=== PATIENT | female | born 1995 | race African-American/Black ===

== ENCOUNTER 2023-01-24 10:52 | Emergency (ER) | payer MEDICAID, OTHER ==
[~2023-01-24] VITALS: Ht 177.8 cm; Wt 111.3 kg
[2023-01-24 11:21] VITALS: BP 138/98
[2023-01-24] MEDS ORDERED: AMOX875T3 PO (11:27)
[2023-01-24] MEDS ORDERED: IBUP600T27 PO (11:27)
== END 2023-01-24 11:44 | disposition home or self-care (01) ==
LOC: ER 10:52
DX: H66.92 Otitis media, unspecified, left ear (principal); Z88.1 Allergy status to other antibiotic agents; Z88.6 Allergy status to analgesic agent

== ENCOUNTER 2023-06-14 10:29 | Emergency (ER) | payer OTHER ==
[~2023-06-14] VITALS: Ht 177.8 cm; Wt 111.7 kg
[~2023-06-14 10:29] MED LIST: AMOX875T3 PO; IBUP-1454 PO
[2023-06-14 11:15] VITALS: BP 141/93; PULSE 90; RESP 18; TEMP 98.1; O2SAT 100
[2023-06-14] MEDS ORDERED: AUG875T PO (11:15)
[2023-06-14] MEDS ORDERED: IBUP-1456 PO (11:15)
== END 2023-06-14 11:17 | disposition home or self-care (01) ==
LOC: ER 10:29
DX: H66.92 Otitis media, unspecified, left ear (principal)

== ENCOUNTER 2023-06-24 20:59 | Emergency (ER) | payer OTHER ==
[~2023-06-24] VITALS: Ht 167.6 cm; Wt 111.8 kg
[~2023-06-24 20:59] MED LIST changes: +AUG875T PO; +IBUP-1456 PO
[2023-06-24 22:00] LABS: Basophils # (auto) 0 10 ^3/uL (0-0.2); Basophils % (auto) 0.4 % (0.0-2.0); Hemoglobin 12.2 g/dL (12.2-16.2); Lymphocytes # (auto) 1.6 10 ^3/uL (0.4-5.4); Nucleated Red Blood Cells % 0.1 %
[2023-06-24 22:02] LABS: Eosinophils # (auto) 0 10 ^3/uL (0-0.8); Eosinophils % (auto) 0.7 % (0.0-7.0); Hematocrit 38.8 % (36.0-46.0); Mean Corpuscular Hemoglobin 22.3 pg (28.0-32.0); Mean Corpuscular Hgb Conc. 31.4 g/dL (32.0-36.0); Mean Corpuscular Volume 70.9 fL (80.0-100.0); Monocytes # (auto) 0.3 10 ^3/uL (0-1.3); Monocytes % (auto) 5.4 % (0.0-12.0); Neutrophils # (auto) 3.7 10 ^3/uL (1.6-8.6); Neutrophils % (auto) 65.5 % (37.0-80.0); Red Blood Cells 5.47 10^6/uL (4.0-5.20); Red Cell Distribution Width 15.8 % (11.8-14.3); White Blood Cell 5.7 10^3/uL (4.4-10.8)
[2023-06-24 22:15] LABS: Albumin 4.1 g/dL (3.4-5.0); Calcium 9.7 mg/dL (8.5-10.1); Magnesium 1.9 mg/dL (1.6-2.6); Potassium 3.4 mmol/L (3.5-5.1)
[2023-06-24] MEDS ORDERED: LORATADINE 10 MG TAB PO ONE (22:15)
[2023-06-24] MEDS ORDERED: DexAMETHasone SOD PHOS 10MG/1ML VIAL INJ IM ONE (22:15)
[2023-06-24 22:19] LABS: BUN/Creatinine Ratio 7.7 (10.0-20.0); Bilirubin, Total 0.4 mg/dL (0.2-1.0); Total Protein 8.1 g/dL (6.4-8.2)
[2023-06-24 23:05] LABS: Lactic Acid w/Reflex 7.2 mmol/L (0.4-2.0)
[2023-06-24 23:13] VITALS: BP 146/85; PULSE 71; RESP 21; TEMP 98.5; O2SAT 100
[2023-06-24] MEDS ORDERED: ONDANSETRON HCL 4 MG/2 ML VIAL IM ONE (23:15)
[2023-06-24] MEDS ORDERED: SODIUM CHLORIDE 0.9% 2,000 ML IV ONE (23:30)
[2023-06-25 00:24] LABS: Urine Bacteria NONE SEEN /hpf (None Seen); Urine Blood Negative /uL (Negative); Urine Clarity Clear (Clear); Urine Color Yellow (Yellow); Urine Mucus FEW (None Seen); Urine Protein, UAD 1+ (Negative); Urine Specific Gravity 1.028 (1.001-1.035); Urine Urobilinogen Normal (Negative); Urine WBC 1 /hpf (0 - 5)
[2023-06-25] MEDS ORDERED: SODIUM CHLORIDE 0.9% 1,000 ML IV ONE (00:45)
== END 2023-06-25 05:08 | disposition left against medical advice (07) ==
LOC: ER 21:01
DX: R53.1 Weakness (principal); R11.10 Vomiting, unspecified; F41.9 Anxiety disorder, unspecified; R20.0 Anesthesia of skin
CPT/HCPCS: 36415; 70450; 71045; 80053; 81001; 83605; 83735; 84484; 85025; 87040; 93005; 96360; 96361; 96372; 99285; J1100; J2405; J7030

== ENCOUNTER 2023-10-27 15:30 | Emergency (ER) | payer MEDICAID, OTHER ==
[~2023-10-27] VITALS: Ht 177.8 cm; Wt 113.6 kg
[2023-10-27 16:11] LABS: Basophils # (auto) 0 10 ^3/uL (0-0.2); Basophils % (auto) 0.2 % (0.0-2.0); Eosinophils # (auto) 0 10 ^3/uL (0-0.8); Hematocrit 39.3 % (36.0-46.0); Hemoglobin 12.6 g/dL (12.2-16.2); Mean Corpuscular Hemoglobin 22.4 pg (28.0-32.0); Mean Corpuscular Hgb Conc. 31.9 g/dL (32.0-36.0); Mean Corpuscular Volume 70.2 fL (80.0-100.0); Monocytes # (auto) 0.2 10 ^3/uL (0-1.3); Neutrophils # (auto) 5.9 10 ^3/uL (1.6-8.6); Neutrophils % (auto) 72.8 % (37.0-80.0); Red Cell Distribution Width 15.9 % (11.8-14.3); White Blood Cell 8.1 10^3/uL (4.4-10.8)
[2023-10-27] MEDS ORDERED: ONDANSETRON HCL 4 MG/2 ML VIAL IM ONE ×2 (16:15→22:00)
[2023-10-27] MEDS ORDERED: DICYCLOMINE HCL (10MG/ML) 2 ML AMPULE IM ONE (16:15)
[2023-10-27 16:29] LABS: Alanine Aminotransferase 29 U/L (7-40); Albumin 5.1 g/dL (3.2-4.8); Alkaline Phosphatase 53 U/L (46-116); Anion Gap 11 (5-15); Aspartate Aminotransferase 14 U/L (13-40); BUN/Creatinine Ratio 10.5 (10.0-20.0); Bilirubin, Total 0.6 mg/dL (0.2-1.0); Blood Urea Nitrogen 12 mg/dL (9-23); Calcium 10.3 mg/dL (8.5-10.1); Carbon Dioxide 23 mmol/L (20-30); Chloride 103 mmol/L (98-107); Glucose 141 mg/dL (74-106); Potassium 3.3 mmol/L (3.5-5.1); Sodium 137 mmol/L (136-145); Total Protein 8.4 g/dL (5.7-8.2)
[2023-10-27 16:36] LABS: Rapid Strep A Screen-Throat Negative
[2023-10-27] MEDS ORDERED: ONDANSETRON HCL 4 MG/2 ML VIAL ONE (16:59)
[2023-10-27] MEDS ORDERED: DICYCLOMINE HCL 10 MG CAP ONE (16:59)
[2023-10-27] MEDS ORDERED: METOCLOPRAMIDE HCL 5MG/ml INJ 2ml VIAL IM ONE (19:45)
[2023-10-27] MEDS ORDERED: METOCLOPRAMIDE HCL 5MG/ml INJ 2ml VIAL ONE (20:40)
[2023-10-27] MEDS ORDERED: PROCHLORPERAZINE EDISYLATE 5 MG/ML 2ML VIAL IM ONE (22:00)
[2023-10-27 22:23] LABS: Urine Bacteria NONE SEEN /hpf (None Seen); Urine Blood Negative /uL (Negative); Urine Clarity Clear (Clear); Urine Color Yellow (Yellow); Urine Hyaline Cast FEW /lpf (0 - 2); Urine Mucus FEW (None Seen); Urine Protein, UAD 2+ (Negative); Urine Specific Gravity 1.039 (1.001-1.035); Urine WBC 2 /hpf (0 - 5)
[2023-10-27] MEDS ORDERED: PROCHLORPERAZINE EDISYLATE 5 MG/ML 2ML VIAL ONE (22:46)
[2023-10-27 22:50] VITALS: BP 128/80; PULSE 86; RESP 18; TEMP 98.7; O2SAT 100
[2023-10-27] MEDS ORDERED: ALPR0.5T PO ×2 (23:23)
[2023-10-28] MEDS ORDERED: ZOFR4T PO (02:55)
[2023-10-28] MEDS ORDERED: METO-281 PO (02:55)
== END 2023-10-28 02:56 | disposition left against medical advice (07) ==
LOC: ER 15:30
DX: O99.611 Diseases of the digestive system complicating pregnancy, first trimester (principal); R10.2 Pelvic and perineal pain; K52.9 Noninfective gastroenteritis and colitis, unspecified; Z3A.13 13 weeks gestation of pregnancy; Z79.1 Long term (current) use of non-steroidal anti-inflammatories (NSAID); Z79.2 Long term (current) use of antibiotics
CPT/HCPCS: 36415; 80053; 81001; 81025; 84702; 85025; 87070; 87880; 96372; 99284; J0780; J2405; J2765

== ENCOUNTER 2024-12-09 13:55 | Emergency (ER) | payer MEDICAID ==
[~2024-12-09] VITALS: Ht 177.8 cm; Wt 105.3 kg
[~2024-12-09 13:55] MED LIST changes: +METO-281 PO; +ZOFR4T PO
[2024-12-09 15:21] LABS: Basophils # (auto) 0.1 10 ^3/uL (0-0.2); Basophils % (auto) 0.5 % (0.0-2.0); Eosinophils # (auto) 0 10 ^3/uL (0-0.8); Hematocrit 40.7 % (36.0-46.0); Hemoglobin 13.4 g/dL (12.2-16.2); Lymphocytes # (auto) 2.3 10 ^3/uL (0.4-5.4); Lymphocytes % (auto) 23.3 % (10.0-50.0); Mean Corpuscular Hemoglobin 23.1 pg (28.0-32.0); Mean Corpuscular Hgb Conc. 32.9 g/dL (32.0-36.0); Mean Corpuscular Volume 70.1 fL (80.0-100.0); Monocytes # (auto) 0.3 10 ^3/uL (0-1.3); Monocytes % (auto) 3.5 % (0.0-12.0); Neutrophils # (auto) 7.1 10 ^3/uL (1.6-8.6); Neutrophils % (auto) 72.7 % (37.0-80.0); Nucleated Red Blood Cells % 0.1 %; Platelet Count (auto) 342 10^3/uL (140-450); Red Cell Distribution Width 14.8 % (11.8-14.3); White Blood Cell 9.7 10^3/uL (4.4-10.8)
[2024-12-09 15:30] LABS: Chloride 104 mmol/L (98-107); Sodium 139 mmol/L (136-145)
[2024-12-09 15:31] LABS: Anion Gap 13 (5-15); Carbon Dioxide 22 mmol/L (20-31)
[2024-12-09 15:37] LABS: BUN/Creatinine Ratio 13.6 (10.0-20.0); Blood Urea Nitrogen 18 mg/dL (9-23)
[2024-12-09 15:38] LABS: Calcium 11.1 mg/dL (8.7-10.4); Glucose 119 mg/dL (74-106); Potassium 3.4 mmol/L (3.5-5.1)
--- NOTE | 2024-12-09 15:48 | ED.PDOC ---
GI ASSESSMENT HPI Comments 29 y/o F, presents to the ED for CC of nausea/vomiting. Patient states, that she has been experiencing persistent nausea and vomiting x4days. Patient comments on, the possibility of being however she is unsure; LMP was on November 02, 2024. Patient denies tobacco usage or ETOH consumption, patient endorses on quitting marijuana usage as of 1 week ago. Patient denies fever, abdominal pain, diarrhea, chills, or body aches. No other symptoms or modifying factors at this time. Chief Complaint: Nausea/Vomiting Time Seen by MD: 15:30 Primary Care Provider: UNKNOWN Reviewed Notes: Nurses Notes, Medications, Allergies Allergies: Coded Allergies: NO KNOWN ALLERGIES (Unverified , 01/24/23) Home Meds Active Scripts Metoclopramide Hcl (Reglan) 10 Mg Tab, 10 MG PO Q6HP PRN, #30 TAB Prov:OSCAR FAROOQ PAC 10/28/23 Ondansetron Odt 4MG Tab (ZOFRAN PO) 4 Mg Tb, 4 MG PO Q6HP PRN, #20 TAB ODT TAB-DISSOLVE IN MOUTH, THEN SWALLOW Prov:OSCAR FAROOQ PAC 10/28/23 Ibuprofen (Ibuprofen) 800 Mg Tab, 1 TAB PO TID, #24 TAB Prov:MORRIS HERNANDEZ 06/14/23 Amoxicillin & Pot Clavulanate (AUGMENTIN TABLET) 875 Mg Tb, 875 MG PO BID for 10 Days, #20 TAB Prov:MORRIS HERNANDEZ 06/14/23 Ibuprofen (Ibuprofen) 600 Mg Tab, 1 TAB PO TID, #30 TAB Prov:MORRIS HERNANDEZ 01/24/23 Amoxicillin Trihydrate (Amoxicillin) 875 Mg Tab, 1 TAB PO BID, #20 TAB Prov:MORRIS HERNANDEZ 01/24/23 Information Source: Patient Mode of Arrival: Ambulatory Timing: Days Duration: Since onset Prehospital treatment: None Quality: None Vomitus: Watery Stool: Watery Severity: Mild Recent: None Recent Hx of: None Pain Location: None Modifying Factors: Nothing Associated sign and symptoms: Nausea, Vomiting, None Past Medical History PAST MEDICAL HISTORY: Denies Surgical History: Denies all surgeries BUGGY RUNNER History: Denies all BUGGY RUNNER Hx Family History Family History: Reviewed,noncontributory to illness Social History Smoker: Non-Smoker Alcohol: Denies ETOH Use Drugs: Marijuana (QUIT 1 WEEK AGO) Lives In: Home Constitutional: denies: chills, diaphoresis, fatigue, fever, malaise, sweats, weakness, others EENTM: denies: blurred vision, double vision, ear bleeding, ear discharge, ear drainage, ear pain, ear ringing, eye pain, eye redness, hearing loss, mouth pain, mouth swelling, nasal discharge, nose bleeding, nose congestion, nose pain, photophobia, tearing, throat pain, throat swelling, voice changes, others Respiratory: denies: cough, hemoptysis, orthopnea, SOB at rest, shortness of breath, SOB with excertion, stridor, wheezing, others Cardiovascular: denies: chest pain, dizzy spells, diaphoresis, Dyspnea on exertion, edema, irregular heart beat, left arm pain, lightheadedness, palpitations, PND, syncope, others Gastrointestinal: reports: nausea, vomiting; denies: abdomen distended, abdominal pain, blood streaked bowels, constipated, diarrhea, dysphagia, difficulty swallowing, hematemesis, melena, poor appetite, poor fluid intake, rectal bleeding, rectal pain, others Genitourinary: denies: abnormal vagina bleeding, burning, dyspareunia, dysuria, flank pain, frequency, hematuria, incontinence, pain, , vagina discharg e, urgency, others Neurological: denies: dizziness, fainting, headache, left sided numbness, left sided weakness, numbness, paresthesia, pre-existing deficit, right sided numbness, right sided weakness, seizure, speech problems, tingling, tremors, weakness, others Musculoskeletal: denies: back pain, gout, joint pain, joint swelling, muscle pain, muscle stiffness, neck pain, others Integumetry: denies: bruises, change in color, change in hair/nails, dryness, laceration, lesions, lumps, rash, wounds, others Allergic/Immunocompromised: denies: Difficulty Healing, Frequent Infections, Hives, Itching, others Hematologic/Lymphatic: denies: anemia, blood clots, easy bleeding, easy bruising, swollen glands, others Endocrine: denies: excessive hunger, excessive sweating, excessive thirst, excessive urination, flushing, intolerance to cold, intolerance to heat, unexplained weight gain, unexplained weight loss, others Psychiatric: denies: anxiety, bipolar disorder, depression, hopeless, panic d isorder, schizophrenia, sleepless, suicidal, others All Other Systems: Reviewed and Negative Physical Exam General Appearance: Moderate Distress HEENT: Normal ENT Inspection, Pharynx Normal, TMs Normal Neck: Full Range of Motion, Non-Tender, Normal, Normal Inspection Respiratory: Chest Non-Tender, Lungs Clear, No Accessory Muscle Use, No Respiratory Distress, Normal Breath Sounds Cardiovascular: No Edema, No JVD, No Murmur, No Gallop, Normal Peripheral Pulses, Regular Rate/Rhythm Breast Exam: Deferred Gastrointestinal: No Organomegaly, Non Tender, No Pulsatile Mass, Normal Bowel Sounds, Soft Genitalia: Deferred Pelvic: Deferred Rectal: Deferred Extremities: No calf tenderness, Normal capillary refill, Normal inspection, Normal range of motion, Non-tender, No pedal edema Musculoskeletal : Apperance: Normal Neurologic: Alert, account clerk II-XII nml as Tested, No Motor Deficits, Normal Affect, Normal Mood, No Sensory Deficits Cerebellar Function: Normal Reflexes: Normal Skin: Dry, Normal Color, Warm Peripheral Pulses: 3+ Radial (R), 3+ Radial (L) Lymphatic: No Adenopathy Was a procedure done? Was a procedure done?: No GI differential Dx Differential Diagnosis: Constipation, Diverticular disease, Esophagitis, Gastritis/PUD, Gastroenteritis, Drug toxicity, Electrolyte Imbalance, Food Poisoning, , Bacterial, Viral X-Ray, Labs, Meds, VS Vital Signs Date Time Temp Pulse Resp B/P (MAP) Pulse Ox O2 Delivery O2 Flow Rate FiO2 12/09/24 14:30 97.8 117 20 114/96 (102) 100 12/09/24 14:28 91 Lab Test 12/09/24 16:10 12/09/24 15:06 Range/Units Urine Color Yellow Yellow Urine Clarity Turbid H Clear Urine pH 6.5 5.0-9.0 Urine Specific [place] 1.039 H 1.001-1.035 Urine Protein 3+ H Negative Urine Ketones 4+ H Negative Urine Blood Negative Negative /uL Urine Nitrite Negative Negative Urine Bilirubin 1+ H Negative Urine Urobilinogen 4 H Negative mg/dL Urine Leukocyte Esterase 1+ Negative /uL Urine RBC 2 0 - 4 /hpf Urine Microscopic WBC 6 H 0-5 /HPF Urine Squamous Epithelial Cells Many <5 /hpf Urine Bacteria Few H None Seen /hpf Urine Hyaline Casts Few 0 - 2 /lpf Urine Mucus Moderate None Seen Urine Glucose Trace Normal mg/dL Urine Test Positive Negative Urine Opiates Screen Pending Urine Fentanyl Screen Pending Urine Barbiturates Screen Pending Urine Phencyclidine Screen Pending Urine Amphetamines Screen Pending Urine Benzodiazepines Screen Pending Urine Cocaine Screen Pending Urine Cannabinoids Screen Pending White Blood Count 9.7 4.4-10.8 10^3/uL Red Blood Count 5.80 H 4.0-5.20 10^6/uL Hemoglobin 13.4 12.2-16.2 g/dL Hematocrit 40.7 36.0-46.0 % Mean Corpuscular Volume 70.1 L 80.0-100.0 fL Mean Corpuscular Hemoglobin 23.1 L 28.0-32.0 pg Mean Corpuscular Hemoglobin Concent 32.9 32.0-36.0 g/dL Red Cell Distribution Width 14.8 H 11.8-14.3 % Platelet Count 342 140-450 10^3/uL Mean Platelet Volume 6.9 6.9-10.8 fL Neutrophils (%) (Auto) 72.7 37.0-80.0 % Lymphocytes (%) (Auto) 23.3 10.0-50.0 % Monocytes (%) (Auto) 3.5 0.0-12.0 % Eosinophils (%) (Auto) 0.0 0.0-7.0 % Basophils (%) (Auto) 0.5 0.0-2.0 % Neutrophils # (Auto) 7.1 1.6-8.6 10 ^3/uL Lymphocytes # (Auto) 2.3 0.4-5.4 10 ^3/uL Monocytes # (Auto) 0.3 0-1.3 10 ^3/uL Eosinophils # (Auto) 0 0-0.8 10 ^3/uL Basophils # (Auto) 0.1 0-0.2 10 ^3/uL Nucleated Red Blood Cells 0.1 % Sodium Level 139 136-145 mmol/L Potassium Level 3.4 L 3.5-5.1 mmol/L Chloride Level 104 98-107 mmol/L Carbon Dioxide Level 22 20-31 mmol/L Anion Gap 13 5-15 Blood Urea Nitrogen 18 9-23 mg/dL Creatinine 1.32 H 0.550-1.02 mg/dL Glomerular Filtration Rate Calc 56 >90 mL/min BUN/Creatinine Ratio 13.6 10.0-20.0 Serum Glucose 119 H 74-106 mg/dL Calcium Level 11.1 H 8.7-10.4 mg/dL Current Medications Medications (Trade) Dose Ordered Sig/Randy Route Start Time Stop Time Status Last Admin Potassium Bicarbonate (Klor-Con/Ef) 25 meq ONCE ONCE PO 12/09/24 16:45 12/09/24 16:46 DC 12/09/24 16:58 Patient alert. Complaining of nausea vomiting. Vitals stable. Answering questions. Smokes marijuana. Potassium slightly low. Was given potassium. Denies bleeding. Denies abdominal cramping. Possibly marijuana induced. She has been many times. She has been smoking marijuana till recently. Urinalysis shows . Fetus at risk. Explained to the patient. Was told to follow up with her OBGYN. Was told to follow up with her primary care physician. Was told to come back if there is any problem. Time of 1ST Reevaluation: 14:00 Reevaluation 1ST: Unchanged Patient Education/Counseling: Diagnosis, Treatment Family Education/Counseling: No Family Present Departure 1 Departure Time of Disposition: 15:53 Impression: Primary Impression: Qualified Codes: Z34.90 - Encounter for supervision of normal , unspecified, unspecified trimester Disposition: 01 HOME / SELF CARE / HOMELESS Condition: Good Discharged With: Self Critical Care Note Critical Care Time?: No Stability Stability form required: No Heart Score Heart Score: Heart Score Response (Comments) Value History N/A 0 EKG N/A 0 Age N/A 0 Risk Factors N/A 0 Troponin N/A 0 Total 0 I personally scribed for KYMBERLY CARPENTER MD ([email or web address]) on 12/09/24 at 15:48. Electronically submitted by Krystal Steven ([email or web address]). I personally scribed for KYMBERLY CARPENTER MD ([email or web address]) on 12/09/24 at 15:49. Electronically submitted by Krystal Steven ([email or web address]). KYMBERLY CARPENTER MD Dec 09, 2024 15:48
[2024-12-09] MEDS: POTASSIUM EFFERVESENT TAB 25 MEQ PO ONE (16:58)
[2024-12-09 17:03] LABS: Urine Bacteria FEW /hpf (None Seen); Urine Blood Negative /uL (Negative); Urine Clarity Turbid (Clear); Urine Color Yellow (Yellow); Urine Hyaline Cast FEW /lpf (0 - 2); Urine Mucus MODERATE (None Seen); Urine Protein, UAD 3+ (Negative); Urine Specific Gravity 1.039 (1.001-1.035); Urine Squamous Epithelial Cell MANY /hpf (<5); Urine Urobilinogen 4 mg/dL (Negative); Urine WBC 6 /HPF (0-5); Urine pH 6.5 (5.0-9.0)
[2024-12-09 17:10] LABS: Amphetamine Screen, Urine Neg (NEGATIVE); Barbiturate Scree,Urine Neg (NEGATIVE); Benzodiazephine Screen, Urine Neg (NEGATIVE); Cannabinoid Screen, Urine Pos (NEGATIVE); Cocaine Screen, Urine Neg (NEGATIVE); Opiate Scree,Urine Neg (NEGATIVE); Phencyclidine Screen, Urine Neg (NEGATIVE)
[2024-12-09] MEDS: SODIUM CHLORIDE 0.9% 1,000 ML IV ONE (17:56)
[2024-12-09] MEDS ORDERED: CEPH250C PO (18:05)
--- NOTE | 2024-12-09 18:26 | DVH ---
EXAM: US OB ULTRASOUND COMP LESS 14WKS CLINICAL HISTORY: cramping COMPARISON: None TECHNIQUE: Grayscale, color-flow Doppler, and spectral Doppler ultrasound of the pelvis is performed by transabdominal and transvaginal technique. Findings: Single intrauterine with gestational sac, yolk sac and embryo visualized. No heart t ones appreciated. Estimated gestational age 5 weeks 4 days based on parameters including crown- rump length of 0.3 cm. Uterus measures 7.8 x 5.3 x 4.1 cm in size. Cervical os appears closed. Small subchorionic hemorrhage. Right ovary measures 1.9 x 1.8 x 1.4 cm. Left ovary not visualized. Normal ovarian color Doppler flow bilaterally. No free fluid within the cul-de-sac. Impression: 1. Single intrauterine without heart tones. May reflect a failed . Recommen d short interval follow up ultrasound and serial quantitative beta HCG. 2. Estimated gestational age 5 weeks 4 days with estimated date of confinement 08/07/2025. 3. Small subchorionic hemorrhage. Cervical os appears closed. 4. Right ovary is grossly unremarkable.
--- NOTE | 2024-12-09 20:14 | ED.PDOC ---
Departure 1 Departure Time of Disposition: 20:08 (Patient with a urinary tract infection and without heart tone today. Counseled patient's stop using marijuana follow up with her regular doctor.) Impression: Primary Impression: Qualified Codes: Z34.90 - Encounter for supervision of normal , unspecified, unspecified trimester Additional Impression: Urinary tract infection Qualified Codes: N30.01 - Acute cystitis with hematuria Disposition: HOME / SELF CARE / HOMELESS Condition: Stable Additional Instructions: You have a threatened miscarriage. Your ultrasound showed a at 5 weeks and 4 days but they were not able to determine a hear beat. You should follow up with OBGYN within three days to recheck your blood work and ultrasound. You also have a urinary tract infection. You were prescribed antibiotics. Please take as directed. Do not use drugs of any kind while . If your symptoms worsen or you have any other concerns then please return to the ER. e-Prescriptions Cephalexin (KEFLEX CAPSULE) 250 Mg Cp 250 MG PO QID for 7 Days, #28 BOTTLE Prov: KYMBERLY CARPENTER MD 12/09/24 Discharged With: JEROME Junior MD Dec 09, 2024 20:14
[2024-12-09 20:51] VITALS: BP 134/77; PULSE 98; RESP 20; TEMP 98.6; O2SAT 100
--- NOTE | 2024-12-09 22:21 | ECG ---
[facility] Test Date: 2024-12-09 Test Time: 14:28:29 Pat Name: JOS ZAMORANO Department: ED Room: [address] [place] [address] Gender: F Stranner: BYRON : 1995 Requested By: KYMBERLY CARPENTER Order Number: [id number] Reading MD: Saurabh Borges Measurements Intervals [place] Rate: 91 P: 69 DC: 151 QRS: 63 QRSD: 82 T: 5 QT: 350 QTc: 431 Interpretive Statements Sinus rhythm Minimal ST depression, inferior leads Electronically Signed On 12-10-2024 8:55:30 PST by Saurabh Borges Please click the below link to view image of tracing.
== END 2024-12-09 21:04 | disposition home or self-care (01) ==
LOC: ER 13:55 → TELE 12-10 01:20 → UNDOADMIN 12-10 01:20
DX: O26.891 Other specified pregnancy related conditions, first trimester (principal); F12.90 Cannabis use, unspecified, uncomplicated; Z3A.01 Less than 8 weeks gestation of pregnancy; Z79.899 Other long term (current) drug therapy
CPT/HCPCS: 36415; 76801; 76817; 80048; 80307; 81001; 81025; 84702; 85025; 93005; 96360; 99284; J7030